=== PATIENT | female | born 1970 | race Caucasian/White ===

== ENCOUNTER 2019-09-13 12:06 | Day surgery (SDC) | payer BC ==
[~2019-09-13 12:06] MED LIST: ACETAMINOPHEN 1,000 MG/100 ML BTL IVPB ONE; CEFAZOLIN 2 Gram 2 GM/50 ML BAG IVPB ONE; OXYCODONE HCL/APAP 5MG/325MG TABLET PO ONE
[2019-09-13] MEDS ORDERED: DEXAMETHASONE 4 MG/ML 1ML VIAL IVP ONE (12:07)
[2019-09-13] MEDS ORDERED: MIDAZOLAM HCL 2MG/2ML VIAL IV ONE (12:07)
[2019-09-13] MEDS ORDERED: ONDANSETRON HCL IV 4 MG/2 ML VIAL IVP ONE (12:07)
[2019-09-13] MEDS ORDERED: GLYCOPYRROLATE 0.2 MG/ML ML IV ONE (12:07)
[2019-09-13] MEDS ORDERED: KETOROLAC 30 MG/ML VIAL IVP ONE (12:07)
[2019-09-13] MEDS ORDERED: FENTANYL PF 100MCG/2ML VIAL IV ONE (12:07)
[2019-09-13] MEDS ORDERED: PROPOFOL 10 MG/ML VIAL IV ONE (12:07)
[2019-09-13] MEDS ORDERED: EPHEDRINE SULFATE 50 MG/ML ML IV ONE (12:07)
[2019-09-13] MEDS ORDERED: LIDOCAINE 2% MDV (20MG/ML) 20ML VIAL IV ONE (12:07)
[2019-09-13] MEDS ORDERED: RINGERS SOLUTION,LACTATED 1,000 ML IV ONE ×3 (12:45→15:42)
[2019-09-13] MEDS ORDERED: EPINEPHRINE 1 MG/ML AMPUL SQ ONE (14:46)
[2019-09-13] MEDS ORDERED: BUPIVACAINE LIPOSOME 266MG/20ML VIAL IU ONE (14:47)
[2019-09-13] MEDS ORDERED: BUPIVACAINE 0.5% W/EPI MPF 30 ML VIAL IU ONE (14:47)
[2019-09-13] MEDS ORDERED: HYDROMORPHONE HCL 2 MG/ML VIAL IVP PRN (16:00)
[2019-09-13] MEDS ORDERED: HYDROMORPHONE HCL 2 MG/ML VIAL IM PRN (16:01)
[2019-09-13] MEDS ORDERED: HYDROCODONE/APAP 7.5/325MG TABLET PO ONE (16:17)
--- NOTE | 2019-09-14 10:01 | Operative Note ---
DATE OF SURGERY: 09/13/2019 PREOPERATIVE DIAGNOSIS: 1. RIGHT SHOULDER ROTATOR CUFF TEAR. 2. ACROMIOCLAVICULAR ARTHROSIS. POSTOPERATIVE DIAGNOSIS: 1. RIGHT SHOULDER ROTATOR CUFF TEAR. 2. ACROMIOCLAVICULAR ARTHROSIS. 3. TYPE 2 SLAP LESION. OPERATION: 1. DIAGNOSTIC ARTHROSCOPY. 2. ARTHROSCOPIC ACROMIOPLASTY AND SUBACROMIAL DECOMPRESSION. 3. ARTHROSCOPIC EXCISION DISTAL CLAVICLE ACROMIOCLAVICULAR JOINT 1 CM. 4. ARTHROSCOPIC ROTATOR CUFF REPAIR. 5. ARTHROSCOPIC BICEPS TENODESIS. 6. ARTHROSCOPIC DEBRIDEMENT OF TYPE 2 SLAP LESION SUPERIOR LABRUM. SURGEON: Trevor Laura M.D. ANESTHESIA: General endotracheal. COMPLICATIONS: None. ESTIMATED BLOOD LOSS: Minimal. OPERATIVE FINDINGS: A small full thickness tear in the supraspinatus Type 2 SLAP lesion, and acromioclavicular joint arthrosis. COMPONENTS PLACED: Kirby and Nephew 4.75 mm Regenesorb anchor with two #2 Ultrabraid sutures and one Kirby [employer] Nephew multi-fix anchor loaded with medial suture. INDICATIONS: This is a 49-year-old female who has had persistent pain and dysfunction for several months. Nonoperative treatment. Preoperative ultrasound showed rotator cuff tear and she is scheduled for the procedure above. I explained the risks and benefits in detail for her diagnoses and and procedures including, but not limited to infection, nerve injury, vessel injury, persistent pain, numbness and tingling in her shoulder, re-tear of the rotator cuff, and need for further procedures. All of her questions were answered. Rehab course outlined. She agreed to proceed. PROCEDURE: The patient was brought to the Operating Room, placed in the beach chair position, and prepped for surgery. General endotracheal was induced. Her right upper extremity and shoulder were prepped and draped in sterile fashion. Her right shoulder was prepped again with ChloraPrep. It was draped. Intraoperative timeout was performed. Next, the glenohumeral joint, subacromial space, and acromioclavicular joint were injected with 0.5% Marcaine with Epi. Standard posterior arthroscopic portal was established 2 cm anterior and 1 cm posterior to the lateral acromion. The anterior portal was established under direct visualization and a diagnostic arthroscopy was performed. The biceps tendon was normal. The biceps anchor and anterior superior labrum was torn and Type 2 SLAP lesions shredded and frayed. We debrided that and planned biceps tenodesis with repair of the tear. The posterior superior labrum is normal. The axial recess is normal. The posterior inferior labrum is normal. The glenoid and humeral articular cartilage was normal. The undersurface of the rotator cuff was inspected and there is a small full thickness tear, we debrided that with a shaver to the articular margin only to bleeding bone surface in preparation for repair. The posterior bur is normal. The superior middle glenoid was intact. The subscapularis tendon has some mild tensor fail superiorly, otherwise normal. The anterior inferior labrum and glenoid was normal. Next, the anterior and posterior subacromial port was established. A tissue biter was inserted into the anterior subacromial portal, subacromial bursectomy was performed outlining the anterior lateral edges of the acromiohumeral ligament completely opening up the inferior joint capsule. Next, the lateral portal was established post marginalization of the acromioclavicular joint with a 5.5 mm bur. The bur was inserted into the lateral portal and took off strips of bone to confirm lateral, medial, anterior and posterior from the Type 2 acromion to the plantar surface using a rasp to smooth subacromial surfaces and verified it was flat with the probe from the posterior portal. Next we inserted the bur into the anterior portal, burred down the acromial facet and resected the distal clavicle 1 cm, made a small stab incision superiorly to the acromioclavicular joint, inserted the shaver there and smoothed both bony surfaces and verified the acromioclavicular joint was completely free of any bony impingement or bony fragments. Next, we thoroughly inspected the bursal surface of the rotator cuff and again small full thickness tear was established. Next we established the anterolateral portal, we placed a shaver there, debrided back the greater tuberosity edge in preparation for suture bridge anchor repair. Next we localized entry point for the rotator cuff anchor at the articular margin, we made a small incision there and inserted the punch tab at the articular margin and inserted the anchor and buried them in the surface of the bone. Next we passed one limb of each set of sutures into the joint from outside in about 2 cm medial to the tear edge, with the first pass we passed through the biceps, we released it and passed it again through looping around the biceps so tenodesed that with the repair. The remainder passes through the fascia using the acromioclavicular joint portal and posterior portals. We then tied those suture sets down with a Revo knot first and a taut line hitch second backed up and reverses down the post throws. We then loaded those on a multi-fix anchor laterally and gaged the eyelet over the greater tuberosity edge to tuck down the edge of the cuff and engage the anchor buried in the surface of bone. There are tension sutures over the cuff edge nicely reproduces footprint. We cut the sutures flush. Direct visualization interarticularly and the footprint was nicely reestablished there. We then cut and released the biceps tendon and debrided both edges. This completed our procedures. The scope equipment was removed. The scope incisions were covered with Steri-Strips and covered with Xeroform gauze, a sterile dressing was applied and an UltraSling. The patient tolerated the procedure well. No intraoperative complications. Sponge, needle and blade counts are correct. Recovery stable. Neurovascularly intact. She will be discharged as an outpatient and follow-up in two weeks and have home therapy nurse. JOB NUMBER: [id number] [facility]
== END 2019-09-13 16:35 | disposition home or self-care (01) ==
LOC: SUR 12:06
PROVIDERS: ATTEND Orthopaedic Surgery
DX: M75.101 Unspecified rotator cuff tear or rupture of right shoulder, not specified as traumatic (principal); S43.431A Superior glenoid labrum lesion of right shoulder, initial encounter; M19.011 Primary osteoarthritis, right shoulder
CPT/HCPCS: 29826; 29827; 29828; 29822; 29824; 01630; C1713 ×2; J1885; J2405; J3010; J1170; J0690; C9290; J0171; J7120